=== PATIENT | male | born 1980 | race Caucasian/White ===

== ENCOUNTER 2021-11-29 07:45 | Emergency (ER) | payer OTHER ==
[2021-11-29 08:09] VITALS: BP 126/84; PULSE 91; TEMP 98.2; BMI 30.2
[2021-11-29] MEDS ORDERED: KETOROLAC TROMETHAMINE 30 MG/1 ML VIAL IM ONE (09:03)
[2021-11-29] MEDS ORDERED: KETOROLAC TROMETHAMINE 30 MG/1 ML VIAL ONE (09:05)
== END 2021-11-29 10:20 | disposition home or self-care (01) ==
LOC: JER 07:45 → JERFT 07:45
PROC: 3E0233Z Introduction of Anti-inflammatory into Muscle, Percutaneous Approach (ICD-10-PCS; principal; 2021-11-29)
DX: S39.012A Strain of muscle, fascia and tendon of lower back, initial encounter (principal); X50.0XXA Overexertion from strenuous movement or load, initial encounter
CPT/HCPCS: 72100-TC-FY; 99284-25

== ENCOUNTER 2025-04-02 20:10 | Emergency (ER) | payer OTHER ==
[2025-04-02 20:16] VITALS: BP 132/99; RESP 18; BMI 29.7
[2025-04-02 21:19] LABS: ABSOLUTE IMMATURE GRANULOCYTES 0.05 x10^3/uL (0.0-0.031); BASOPHILS # 0.04 x10^3/uL (0.01-0.08); EOSINOPHIL % 1.1 % (0.8-7.0); EOSINOPHILS # 0.11 x10^3/uL (0.04-0.54); HEMATOCRIT 40.7 % (40.1-51.0); HEMOGLOBIN 13.7 g/dL (13.7-17.5); MCHC 33.7 g/dl (32.3-36.5); MEAN CELL VOLUME 83.7 fl (79.0-92.2); MEAN PLT VOLUME 9.9 fl (9.4-12.4); MONOCYTE # 1.04 x10^3/uL (0.30-0.82); MONOCYTE % 10.6 % (5.3-12.2); PLATELET COUNT 208 x10^3/uL (163-337); RDW 12.6 % (12.1-15.9)
[2025-04-02 21:20] LABS: PH,URINE 5.5 (5.0-8.0); URINE APPEARANCE CLEAR; URINE BILIRUBIN NEGATIVE (NEGATIVE); URINE COLOR YELLOW; URINE GLUCOSE (UA) 3+ (NEGATIVE); URINE KETONE 1+ (NEGATIVE); URINE LEUK ESTERASE NEGATIVE (NEGATIVE); URINE NITRITE NEGATIVE (NEGATIVE); URINE PROTEIN NEGATIVE (NEGATIVE)
[2025-04-02] MEDS ORDERED: CEFTRIAXONE 1 GM/50 ML BAG ONE (21:41)
[2025-04-02] MEDS: CEFTRIAXONE 1 GM in DEXTROSE 5%-WATER - 100 ML IVPB ONE (21:47)
[2025-04-02 21:48] LABS: CHLORIDE 102 mmol/L (98-107); POTASSIUM 4.3 mmol/L (3.5-5.1); SODIUM 136 mmol/L (136-145)
[2025-04-02 21:51] LABS: ALBUMIN 3.7 g/dl (3.4-5.0); BLOOD UREA NITROGEN 14.5 mg/dL (7-18); CALCIUM 9.4 mg/dL (8.5-10.1)
[2025-04-02 21:53] LABS: ANION GAP 11 mmol/L (4-13); CO2 23 mmol/L (21-32)
[2025-04-02 21:54] LABS: CREATININE 0.9 mg/dL (0.55-1.3); SGOT/AST 7 U/L (15-37); SGPT/ALT 31 U/L (13-61)
[2025-04-02 21:56] LABS: BILIRUBIN,TOTAL 0.6 mg/dL (0.2-1); TOT PROT 7.4 g/dl (6.4-8.2)
[2025-04-02 21:57] LABS: ALK PHOS 92 U/L (45-117)
[2025-04-02 22:00] VITALS: PULSE 96; TEMP 99.1
[2025-04-02 22:27] LABS: GLUCOSE,RANDOM 467 mg/dL (74-106)
[2025-04-02] MEDS: SODIUM CHLORIDE 0.9% 500 ML INFUS.BAG IV ONE (23:15)
== END 2025-04-02 23:54 | disposition home or self-care (01) ==
LOC: JER 20:10
DX: J18.9 Pneumonia, unspecified organism (principal); E11.65 Type 2 diabetes mellitus with hyperglycemia; N13.30 Unspecified hydronephrosis; R80.9 Proteinuria, unspecified; R10.11 Right upper quadrant pain; R50.9 Fever, unspecified; R11.2 Nausea with vomiting, unspecified; R05.9 Cough, unspecified
CPT/HCPCS: 0241U-QW; 36415; 71046-TC-FY; 76705-TC; 80053; 81003; 82962; 83690; 85025; 99285-25

== ENCOUNTER 2025-04-03 08:33 | Observation (INO) | payer OTHER ==
[2025-04-03 10:21] LABS: VENOUS BASE EXCESS -5.7 mmol/L (-2-2); VENOUS O2 SATURATION 93.5 % (70-80); VENOUS PCO2 31.9 mmHg (38-52); VENOUS PH 7.377 (7.310-7.410)
[2025-04-03 10:22] LABS: ABSOLUTE IMMATURE GRANULOCYTES 0.15 x10^3/uL (0.0-0.031); BASOPHILS # 0.04 x10^3/uL (0.01-0.08); EOSINOPHIL % 0.4 % (0.8-7.0); EOSINOPHILS # 0.04 x10^3/uL (0.04-0.54); HEMATOCRIT 39.5 % (40.1-51.0); MCHC 32.9 g/dl (32.3-36.5); MEAN CELL VOLUME 84.2 fl (79.0-92.2); MEAN PLT VOLUME 9.7 fl (9.4-12.4); MONOCYTE # 0.94 x10^3/uL (0.30-0.82); MONOCYTE % 8.5 % (5.3-12.2); PLATELET COUNT 206 x10^3/uL (163-337); RDW 12.7 % (12.1-15.9)
[2025-04-03] MEDS ORDERED: ACETAMINOPHEN INJECTION 100 ML ONE (10:22)
[2025-04-03] MEDS: ACETAMINOPHEN 1000 MG/100 ML BAG IVPB ONE (10:26)
[2025-04-03 10:33] LABS: INR 1.24 (0.83-1.09); PROTHROMBIN TIME (PATIENT) 13.6 SEC (9.7-13.0)
[2025-04-03 10:36] LABS: ACTIVATED PTT 25.9 SECONDS (25.2-36.5)
[2025-04-03 10:48] LABS: POTASSIUM 3.5 mmol/L (3.5-5.1)
[2025-04-03 10:50] LABS: ALBUMIN 3.6 g/dl (3.4-5.0); CALCIUM 9.1 mg/dL (8.5-10.1)
[2025-04-03 10:51] LABS: BLOOD UREA NITROGEN 10.2 mg/dL (7-18); MAGNESIUM 1.8 mg/dL (1.8-2.4)
[2025-04-03 10:54] LABS: CREATININE 0.6 mg/dL (0.55-1.3)
[2025-04-03 10:55] LABS: BILIRUBIN,TOTAL 0.8 mg/dL (0.2-1); TOT PROT 7.1 g/dl (6.4-8.2)
[2025-04-03] MEDS ORDERED: morphine SULFATE 4 MG/ML VIAL ONE (12:00)
[2025-04-03] MEDS: morphine CARPU-JECT 4 MG/1 ML DISP.SYRIN IVPUSH ONE (12:06)
[2025-04-03 12:16] LABS: PH,URINE 5.5 (5.0-8.0); URINE APPEARANCE CLEAR; URINE BILIRUBIN NEGATIVE (NEGATIVE); URINE COLOR YELLOW; URINE GLUCOSE (UA) 3+ (NEGATIVE); URINE KETONE 4+ (NEGATIVE); URINE LEUK ESTERASE NEGATIVE (NEGATIVE); URINE NITRITE NEGATIVE (NEGATIVE); URINE PROTEIN TRACE (NEGATIVE); URINE UROBILINOGEN 0.2 mg/dL (0.2-1.0)
[2025-04-03] MEDS ORDERED: ALBUTEROL SO4 2.5/IPRATROPIUM 0.5 INH SOL 3 ML VIAL.NEB. NEB ONE ×2 (12:18→12:21)
[2025-04-03] MEDS: ALBUTEROL SO4 2.5/IPRATROPIUM 0.5 INH SOL 3 ML VIAL.NEB. NEB ONE (12:21)
[2025-04-03] MEDS: CEFTRIAXONE 1 GM in DEXTROSE 5%-WATER - 50 ML IVPB SCH (14:42)
[2025-04-03] MEDS: AZITHROMYCIN 250 MG TABLET PO SCH (14:43)
[2025-04-03 15:16] VITALS: BMI 28.9
[2025-04-03] MEDS ORDERED: INSULIN ASPART SLIDING SCALE (NOVOLOG) 1 VIAL SQ ONE (16:46)
[2025-04-03] MEDS: INSULIN ASPART SLIDING SCALE (NOVOLOG) 1 VIAL SQ SCH (16:47)
[2025-04-03] MEDS: KETOROLAC TROMETHAMINE 15 MG/ML VIAL IVPUSH PRN (16:48)
[2025-04-03] MEDS: ACETAMINOPHEN 500 MG TABLET (FP) PO PRN (18:14)
[2025-04-03] MEDS: HEPARIN NA (PORCINE) 5,000 UNITS/ML 1ML VIAL SQ SCH (21:11)
[2025-04-04] MEDS ORDERED: INSULIN ASPART SLIDING SCALE (NOVOLOG) 1 VIAL SQ ONE ×3 (06:16→16:44)
[2025-04-04 06:55] LABS: ABSOLUTE IMMATURE GRANULOCYTES 0.05 x10^3/uL (0.0-0.031); BASOPHILS # 0.03 x10^3/uL (0.01-0.08); EOSINOPHIL % 0.7 % (0.8-7.0); EOSINOPHILS # 0.07 x10^3/uL (0.04-0.54); HEMATOCRIT 40.3 % (40.1-51.0); HEMOGLOBIN 13.3 g/dL (13.7-17.5); MEAN CELL VOLUME 84.1 fl (79.0-92.2); MEAN PLT VOLUME 9.2 fl (9.4-12.4); MONOCYTE # 1.07 x10^3/uL (0.30-0.82); MONOCYTE % 10.9 % (5.3-12.2); PLATELET COUNT 209 x10^3/uL (163-337); RDW 12.6 % (12.1-15.9)
[2025-04-04 07:15] LABS: POTASSIUM 3.5 mmol/L (3.5-5.1)
[2025-04-04 07:16] LABS: CALCIUM 9.3 mg/dL (8.5-10.1)
[2025-04-04 07:17] LABS: BLOOD UREA NITROGEN 8.1 mg/dL (7-18)
[2025-04-04 07:19] LABS: CREATININE 0.7 mg/dL (0.55-1.3)
[2025-04-04] MEDS ORDERED: oxyCODONE HCL 5 MG TABLET PO PRN (10:18)
[2025-04-04] MEDS: CELECOXIB 200 MG CAPSULE PO SCH (11:52)
[2025-04-04] MEDS: glipiZIDE-XL 5 MG TAB.ER.24 PO ONE (12:20)
[2025-04-04] MEDS: HEPARIN NA (PORCINE) 5,000 UNITS/ML 1ML VIAL SQ SCH (14:20)
[2025-04-04] MEDS: ACETAMINOPHEN 500 MG TABLET (FP) PO PRN (21:59)
[2025-04-05] MEDS ORDERED: INSULIN ASPART SLIDING SCALE (NOVOLOG) 1 VIAL SQ ONE (06:14)
[2025-04-05] MEDS: glipiZIDE 5 MG TABLET (FP) PO ONE ×2 (08:38→08:40)
[2025-04-05 08:45] LABS: BASOPHILS # 0.04 x10^3/uL (0.01-0.08); EOSINOPHIL % 2.4 % (0.8-7.0); EOSINOPHILS # 0.25 x10^3/uL (0.04-0.54); HEMATOCRIT 40.5 % (40.1-51.0); HEMOGLOBIN 13.5 g/dL (13.7-17.5); MCHC 33.3 g/dl (32.3-36.5); MEAN CELL VOLUME 83.9 fl (79.0-92.2); MEAN PLT VOLUME 9.3 fl (9.4-12.4); MONOCYTE # 1.15 x10^3/uL (0.30-0.82); MONOCYTE % 11.2 % (5.3-12.2); PLATELET COUNT 252 x10^3/uL (163-337); RDW 12.6 % (12.1-15.9)
[2025-04-05 09:04] LABS: POTASSIUM 3.6 mmol/L (3.5-5.1)
[2025-04-05 09:08] LABS: ALBUMIN 3.4 g/dl (3.4-5.0); BLOOD UREA NITROGEN 10.8 mg/dL (7-18); CALCIUM 9.5 mg/dL (8.5-10.1)
[2025-04-05 09:11] LABS: CREATININE 0.6 mg/dL (0.55-1.3)
[2025-04-05 09:13] LABS: BILIRUBIN,TOTAL 0.6 mg/dL (0.2-1); TOT PROT 7.8 g/dl (6.4-8.2)
[2025-04-05] MEDS: CEFTRIAXONE 1 GM in DEXTROSE 5%-WATER - 50 ML IVPB SCH (09:20)
[2025-04-05] MEDS: AZITHROMYCIN 250 MG TABLET PO SCH (09:20)
[2025-04-05] MEDS ORDERED: cefTRIAXone SODIUM 1 GM VIAL ONE (09:36)
[2025-04-05 10:19] VITALS: BP 126/88; PULSE 104; RESP 17; TEMP 98.1
[2025-04-05] MEDS ORDERED: INSULIN ASPART SLIDING SCALE (NOVOLOG) 1 VIAL SQ SCH (11:19)
[2025-04-05] MEDS: INSULIN ASPART SLIDING SCALE (NOVOLOG) 1 VIAL SQ SCH (11:25)
== END 2025-04-05 13:10 | disposition home or self-care (01) ==
LOC: JER 08:33 → UNDOADMOB 13:08 → JERBED 13:08 → INTOOBSV 13:08 → JERBED 14:33 → J6S 14:33 → JERBED 04-04 12:24
PROVIDERS: ADMIT Internal Medicine; ATTEND Internal Medicine
PROC: 3E033NZ Introduction of Analgesics, Hypnotics, Sedatives into Peripheral Vein, Percutaneous Approach (ICD-10-PCS; principal; 2025-04-04)
PROC: 3E0F7GC Introduction of Other Therapeutic Substance into Respiratory Tract, Via Natural or Artificial Opening (ICD-10-PCS; 2025-04-04)
PROC: 3E03329 Introduction of Other Anti-infective into Peripheral Vein, Percutaneous Approach (ICD-10-PCS; 2025-04-04)
PROC: 3E023GC Introduction of Other Therapeutic Substance into Muscle, Percutaneous Approach (ICD-10-PCS; 2025-04-04)
PROC: 3E0333Z Introduction of Anti-inflammatory into Peripheral Vein, Percutaneous Approach (ICD-10-PCS; 2025-04-04)
DX: J18.9 Pneumonia, unspecified organism (principal); R93.89 Abnormal findings on diagnostic imaging of other specified body structures; R07.89 Other chest pain; E11.9 Type 2 diabetes mellitus without complications
CPT/HCPCS: 0241U-QW; 36415; 71045-TC-FY; 71275-TC; 80048; 80053; 80061; 81003; 82803; 82962; 83036; 83735; 84484; 85025; 85610; 85730; 87086; 93005; 93010; 99285-25; G0378; Q9967